=== PATIENT | female | born 1950 | race Caucasian/White ===

== ENCOUNTER 2016-11-11 05:50 | Day surgery (SDC) | payer MEDICARE, OTHER ==
[~2016-11-11] VITALS: Ht 165.1 cm; Wt 86.0 kg
--- NOTE | 2016-11-18 07:27 | OR ---
ADMIT: 11/11/2016 RM/LOC: [facility] MR#: [id number] [address] [id number] [address] [place] [address] Operative/Delivery Room Report SEX: F AGE: 66 : 1950 SURGERY DATE: 11/11/2016 SURGEON: Santiago Antonio MD PREOPERATIVE DIAGNOSIS: Need for screening. POSTOPERATIVE DIAGNOSIS: Diverticulosis of the sigmoid. PROCEDURE: Complete colonoscopy. ANESTHESIA: IV general. DESCRIPTION OF PROCEDURE: The patient was taken to the endoscopy suite and placed left side down on her hospital cart. IV sedation was established. Rectal exam was performed, there were no palpable abnormalities. The flexible colonoscope was advanced under direct visualization through the entire colon to the level of the cecum. The cecum was identified by its anatomic landmarks in the ileocecal valve. The prep was excellent. Care was taken upon withdrawal of the scope to examine the mucosa of the colon. The cecum, ascending colon, transverse colon, and proximal descending colon were normal. In the distal descending colon and sigmoid, there were scattered diverticulosis. The scope was withdrawn to the rectum, and this was normal on inspection and retroflexion. The scope was straightened and air was suctioned. The patient tolerated the procedure well and transferred to the recovery area in stable condition. Santiago Antonio MD/ dimple JOB #: [id number] CC: Santiago Antonio, Attending Physician Jonatan Kimble, Family Physician
== END 2016-11-11 09:15 | disposition home or self-care (01) ==
LOC: SSS 05:50
PROC: 0DJD8ZZ Inspection of Lower Intestinal Tract, Via Natural or Artificial Opening Endoscopic (ICD-10-PCS; principal; 2016-11-11)
DX: Z12.11 Encounter for screening for malignant neoplasm of colon (principal); K57.30 Diverticulosis of large intestine without perforation or abscess without bleeding; Z80.0 Family history of malignant neoplasm of digestive organs; J44.9 Chronic obstructive pulmonary disease, unspecified; I25.2 Old myocardial infarction; Z98.890 Other specified postprocedural states